=== PATIENT | female | born 1995 | race Hispanic/Latino ===

== ENCOUNTER 2017-10-11 20:28 | Emergency (ER) | payer OTHER | END 2017-10-11 21:55 | disposition home or self-care (01) | LOC: ERS 20:28 | DX: J11.1 Influenza due to unidentified influenza virus with other respiratory manifestations (principal); F41.9 Anxiety disorder, unspecified | CPT/HCPCS: 87081; 87430; 99283 ==

== ENCOUNTER 2022-03-17 13:39 | Outpatient (CLI) | payer OTHER | END 2022-03-17 13:40 | disposition home or self-care (01) | LOC: BICULT 13:39 | PROVIDERS: ATTEND Family Medicine | DX: O09.892 Supervision of other high risk pregnancies, second trimester (principal); O40.2XX0 Polyhydramnios, second trimester, not applicable or unspecified; Z3A.24 24 weeks gestation of pregnancy | CPT/HCPCS: 76805 ==

== ENCOUNTER 2022-03-17 19:08 | Emergency (ER) | payer OTHER | END 2022-03-17 20:20 | disposition home or self-care (01) | LOC: ERS 19:08 | DX: O99.891 Other specified diseases and conditions complicating pregnancy (principal); R05.9 Cough, unspecified; Z3A.23 23 weeks gestation of pregnancy | CPT/HCPCS: 99283 ==

== ENCOUNTER 2022-05-05 22:17 | Emergency (ER) | payer OTHER | END 2022-05-06 00:29 | disposition short-term general hospital (02) | LOC: ERS 22:17 | DX: O36.8130 Decreased fetal movements, third trimester, not applicable or unspecified (principal); Z3A.31 31 weeks gestation of pregnancy | CPT/HCPCS: 99284 ==